=== PATIENT | female | born 1965 | race Caucasian/White ===

== ENCOUNTER → 2018-12-03 | Emergency (ER) | payer OTHER, MEDICAID ==
[2018-12-03 00:58] LABS: ADD MAN DIFF? NO
[2018-12-03 01:00] LABS: WHITE BLOOD COUNT 5.4 10^3/ul (4.8-10.8)
[2018-12-03 01:00] LABS: BASOPHILS % 0.7 % (0.0-2.0); EOSINOPHILS # 0.2 10^3/ul (0.0-0.5); EOSINOPHILS % 3.2 % (0.0-7.0); HEMATOCRIT 38.1 % (37.0-47.0); HEMOGLOBIN 12.5 g/dl (12.0-16.0); LYMPHOCYTES # 2.2 10^3/ul (0.8-2.9); LYMPHOCYTES % 40.9 % (15.0-51.0); MEAN CORPUSCULAR HEMOGLOBIN 31.1 pg (29.0-33.0); MEAN CORPUSCULAR HGB CONC 32.8 g/dl (32.0-37.0); MEAN CORPUSCULAR VOLUME 94.8 fl (82.0-101.0); MEAN PLATELET VOLUME 10.7 fl (7.4-10.4); MONOCYTE # 0.4 10^3/ul (0.3-0.9); MONOCYTES % 7.6 % (0.0-11.0); NEUTROPHIL # 2.5 10^3/ul (1.6-7.5); NEUTROPHILS % 47.4 % (39.0-77.0); PLATELET COUNT 198 10^3/UL (140-415); RED BLOOD COUNT 4.02 10^6/ul (4.20-5.40); RED CELL DISTRIBUTION WIDTH 12.3 % (11.5-14.5)
[2018-12-03 01:28] LABS: ANION GAP 12 (5-13); BLOOD UREA NITROGEN 19 mg/dl (7-20); CALCIUM 8.9 mg/dl (8.4-10.2); CARBON DIOXIDE 23 mmol/L (21-31); CHLORIDE 108 mmol/L (97-110); CREATININE 0.66 mg/dl (0.44-1.00); Estimated GFR > 60 mL/min (>60); GLUCOSE 116 mg/dl (70-220); POTASSIUM 3.5 mmol/L (3.5-5.1); SODIUM 143 mmol/L (135-144)
[2018-12-03] MEDS: LORAZEPAM 1 MG TAB PO (01:29)
[2018-12-03 01:38] LABS: TROPONIN-I < 0.012 ng/ml (0.000-0.120)
== END | disposition home or self-care (01) ==
LOC: E/R 00:08
DX: R07.9 Chest pain, unspecified (principal); F41.9 Anxiety disorder, unspecified; Z87.891 Personal history of nicotine dependence
CPT/HCPCS: 36415; 71045; 80048; 84484; 85025; 93005; 99285-25

== ENCOUNTER 2019-01-16 22:08 | Emergency (ER) | payer OTHER ==
[2019-01-16 23:03] LABS: ADD MAN DIFF? NO
[2019-01-16] MEDS: BELLADONNA/PHENOBARBITAL TAB PO (23:04)
[2019-01-16] MEDS: LORAZEPAM 0.5 MG TAB PO (23:04)
[2019-01-16] MEDS: LIDOCAINE/MYLANTA 40 ML BTL PO (23:04)
[2019-01-16 23:07] LABS: BASOPHILS % 0.6 % (0.0-2.0); EOSINOPHILS # 0.3 10^3/ul (0.0-0.5); EOSINOPHILS % 5.4 % (0.0-7.0); HEMATOCRIT 39.7 % (37.0-47.0); HEMOGLOBIN 12.8 g/dl (12.0-16.0); LYMPHOCYTES # 2.4 10^3/ul (0.8-2.9); LYMPHOCYTES % 47.6 % (15.0-51.0); MEAN CORPUSCULAR HEMOGLOBIN 31.7 pg (29.0-33.0); MEAN CORPUSCULAR HGB CONC 32.2 g/dl (32.0-37.0); MEAN CORPUSCULAR VOLUME 98.3 fl (82.0-101.0); MEAN PLATELET VOLUME 10.9 fl (7.4-10.4); MONOCYTE # 0.6 10^3/ul (0.3-0.9); MONOCYTES % 11.4 % (0.0-11.0); NEUTROPHIL # 1.7 10^3/ul (1.6-7.5); NEUTROPHILS % 34.8 % (39.0-77.0); PLATELET COUNT 234 10^3/UL (140-415); RED BLOOD COUNT 4.04 10^6/ul (4.20-5.40); RED CELL DISTRIBUTION WIDTH 12.5 % (11.5-14.5)
[2019-01-16] MEDS: ONDANSETRON 4 MG INJ IV (23:08)
[2019-01-16] MEDS: KETOROLAC 15 MG INJ IV (23:09)
[2019-01-16] MEDS: SOD CHLORIDE 0.9% 500 ML IV (23:12)
[2019-01-16 23:26] LABS: ALANINE AMINOTRANSFERASE 35 IU/L (13-69); ALBUMIN 4.3 g/dl (3.3-4.9); ALBUMIN/GLOBULIN RATIO 1.43; ALKALINE PHOSPHATASE 80 IU/L (42-121); ANION GAP 9 (5-13); ASPARTATE AMINO TRANSFERASE 31 IU/L (15-46); BILIRUBIN,INDIRECT 0.4 mg/dl (0-1.1); BILIRUBIN,TOTAL 0.4 mg/dl (0.2-1.3); BLOOD UREA NITROGEN 21 mg/dl (7-20); CALCIUM 9.3 mg/dl (8.4-10.2); CARBON DIOXIDE 26 mmol/L (21-31); CHLORIDE 104 mmol/L (97-110); CREATININE 0.66 mg/dl (0.44-1.00); Estimated GFR > 60 mL/min (>60); GLUCOSE 101 mg/dl (70-220); LIPASE 184 U/L (23-300); SODIUM 139 mmol/L (135-144); TOTAL PROTEIN 7.3 g/dl (6.1-8.1)
[2019-01-16 23:28] LABS: POTASSIUM 3.5 mmol/L (3.5-5.1)
[2019-01-16 23:38] LABS: TROPONIN-I < 0.012 ng/ml (0.000-0.120)
== END 2019-01-16 23:51 | disposition home or self-care (01) ==
LOC: E/R 22:08
DX: F41.9 Anxiety disorder, unspecified (principal); I25.2 Old myocardial infarction; R07.9 Chest pain, unspecified; Z87.891 Personal history of nicotine dependence
CPT/HCPCS: 36415; 71045; 80053; 83690; 84484; 85025; 93005; 96374; 96375; 99285-25

== ENCOUNTER 2019-03-10 23:27 | Emergency (ER) | payer OTHER ==
[2019-03-11] MEDS: FAMOTIDINE 20 MG TAB PO (01:52)
[2019-03-11] MEDS: LORAZEPAM 0.5 MG TAB PO (01:53)
[2019-03-11] MEDS: LIDOCAINE/MYLANTA 40 ML BTL PO (01:53)
[2019-03-11] MEDS: BELLADONNA/PHENOBARBITAL TAB PO (01:53)
== END 2019-03-11 02:29 | disposition home or self-care (01) ==
LOC: E/R 23:27
DX: K29.00 Acute gastritis without bleeding (principal); F15.10 Other stimulant abuse, uncomplicated; F17.210 Nicotine dependence, cigarettes, uncomplicated
CPT/HCPCS: 99283; Z7502